=== PATIENT | female | born 1970 | race Caucasian/White ===

== ENCOUNTER 2021-01-12 12:24 | Emergency (ER) | payer SELFPAY ==
[2021-01-12 12:28] VITALS: BP 161/91; PULSE 87; RESP 15; TEMP 36.5; O2SAT 97; BMI 43.0
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
--- NOTE | 2021-01-12 12:32 | ECG_ITS ---
[facility] Test Date: 2021-01-12 Pat Name: Maggie Powell Department: Room: Gender: Female Auditor Supervisor: : [id number] Requested By: Angelo Morin Order Number: [id number] Latricia MD: Sarthak Mejia M.D. Measurements Intervals [place] Rate: 73 P: 12 IL: 148 QRS: 13 QRSD: 79 T: 9 QT: 394 QTc: 435 Interpretive Statements SINUS RHYTHM Diffuse nonspecific T wave changes No previous ECG available for comparison Electronically Signed On 01-12-2021 23:48:35 CDT by Sarthak Mejia M.D. [email or web address] how [email or web address] Japanuniversity [id number]
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
[2021-01-12 13:09] VITALS: BP 162/135; PULSE 74; O2SAT 97
[2021-01-12 13:19] LABS: Basophils # 0.1 10^3/uL (0.0-0.1); Basophils % 0.6 %; Eosinophils # 0.2 10^3/uL (0.0-0.8); Hemoglobin 13.6 g/dL (11.5-15.3); Lymphocytes # 2.4 10^3/uL (0.8-4.8); Lymphocytes % 28.9 %; Mean Corpuscular HGB Conc 32.4 g/dL (30.0-36.0); Mean Corpuscular Hemoglobin 29.1 pg (28.0-34.0); Mean Corpuscular Volume 89.7 fL (81-99); Mean Platelet Volume 10.7 fL (7.4-10.4); Monocytes # 0.5 10^3/uL (0.2-0.9); Monocytes % 5.5 %; Neutrophils % 62.1 %; Nucleated Red Blood Cells % 0 %; Platelet Count 258 10^3/cmm (130-400); Red Blood Count 4.68 10^6/uL (4.1-5.3); Red Cell Distribution Width 13.1 % (12.1-15.1); White Blood Count 8.2 10^3/uL (4.0-10.0)
[2021-01-12 13:37] LABS: Alanine Aminotransferase 40 U/L (0-33); Albumin Level 3.8 g/dL (3.5-5.2); Alkaline Phosphatase 84 IU/L (35-105); Anion Gap 14.9 (5-19); Aspartate Amino Transferase 43 U/L (0-32); Blood Urea Nitrogen 12 mg/dL (6-20); Calcium 8.5 mg/dL (8.5-10.5); Carbon Dioxide 25 mmol/L (22-29); Chloride 104 mmol/L (98-107); Globulin 2.8 g/dL (1.3-4.6); Glucose 112 mg/dL (65-115); Osmolality Calculated 291 mOsm/kg (285-295); Potassium 3.9 mmol/L (3.5-5.1); Sodium 140 mmol/L (136-145); Total Bilirubin 0.5 mg/dL (0.15-1.2); Total Protein 6.6 g/dL (6.6-8.7)
[2021-01-12 13:44] VITALS: PULSE 73
[2021-01-12] MEDS: HYDROcodone-acetaminophen 5-325 mg Tablet 1 TAB PO (13:53)
[2021-01-12 14:35] VITALS: PULSE 74; O2SAT 100
--- NOTE | 2021-01-12 15:17 | DCPLANNER ---
manager behavior had message to schedule a follow up appointment for patient with ortho. manager behavior called the ortho clinic, spoke with Aury, gave clinic patients information. manager behavior was told that patients information would be printed and reviewed. Clinic will call patient with appointment information.
--- NOTE | 2021-01-13 14:52 | DCPLANNER ---
Patient has a follow up appointment scheduled for Saturday, january 16, [address] at 3:[address] Huang. Clinic will call patient with appointment information.
--- NOTE | 2021-01-20 13:58 | DCPLANNER ---
Patient had a follow up appointment scheduled for 01.16.21 with ortho - patient did attend appointment.
== END 2021-01-12 14:36 | disposition home or self-care (01) ==
PROVIDERS: Emergency Provider Family Medicine
DX: S42.034A Nondisplaced fracture of lateral end of right clavicle, initial encounter for closed fracture (principal); V89.2XXA Person injured in unspecified motor-vehicle accident, traffic, initial encounter
CPT/HCPCS: 71045; 72125; 73030; 80053; 85025; 93005; 99283

== ENCOUNTER → 2021-02-07 09:43 | Outpatient (BNVA) | payer SELFPAY | PROVIDERS: PCP Family Medicine; Visit Provider Orthopaedic Surgery | DX: S42.031D Displaced fracture of lateral end of right clavicle, subsequent encounter for fracture with routine healing (principal); X58.XXXD Exposure to other specified factors, subsequent encounter | CPT/HCPCS: 73000 ==

== ENCOUNTER → 2021-03-08 10:54 | Outpatient (BNVA) | payer OTHER, SELFPAY | PROVIDERS: PCP Family Medicine; Visit Provider Orthopaedic Surgery | DX: S42.031A Displaced fracture of lateral end of right clavicle, initial encounter for closed fracture (principal); X58.XXXA Exposure to other specified factors, initial encounter | CPT/HCPCS: 73000 ==

== ENCOUNTER → 2021-04-11 15:16 | Outpatient (BNVA) | payer OTHER, SELFPAY | PROVIDERS: PCP Family Medicine; Visit Provider Orthopaedic Surgery | DX: S42.033D Displaced fracture of lateral end of unspecified clavicle, subsequent encounter for fracture with routine healing (principal); V89.2XXD Person injured in unspecified motor-vehicle accident, traffic, subsequent encounter | CPT/HCPCS: 73000 ==